=== PATIENT | male | born 1945 | race Caucasian/White ===

== ENCOUNTER 2022-01-15 11:52 | Inpatient (IN) | payer MEDICARE, OTHER ==
[~2022-01-15] VITALS: Ht 175.3 cm; Wt 83.0 kg
[2022-01-15 11:55] VITALS: BP 145/70
--- NOTE | 2022-01-15 12:12 | NUR ---
PT C/O DIZZINESS X2 MONTHS, SEEN AT MULTIPLE EMERGENCY ROOMS FOR SAME COMPLAINT. WAS DUE FOR DIALYSIS TODAY MISSED D/T DIZZINESS.
--- NOTE | 2022-01-15 12:43 | NUR ---
DR MONTALVO AT BEDSIDE EVALUATING PT
[2022-01-15 13:57] LABS: BASOPHILS # (AUTO) 0.2 K/uL (0.00-0.22); BASOPHILS % (AUTO) 1.4 % (0.0-2.0); EOSINOPHILS # (AUTO) 0.1 K/uL (0-0.4); EOSINOPHILS % (AUTO) 0.8 % (0.0-4.0); HEMATOCRIT 34.6 % (36-52); HEMOGLOBIN 11.3 g/dL (12.0-18.0); LYMPHOCYTES # (AUTO) 1.2 K/uL (2.0-11.5); LYMPHOCYTES % (AUTO) 9.9 % (20.5-51.1); MEAN CORPUSCULAR HEMOGLOBIN 29 pg (27-31); MEAN CORPUSCULAR HGB CONC 33 g/dL (33-37); MEAN CORPUSCULAR VOLUME 89.7 fL (80-94); MONOCYTES # (AUTO) 1.4 K/uL (0.8-1.0); MONOCYTES % (AUTO) 11.3 % (1.7-9.3); NEUTROPHILS # (AUTO) 9.4 K/uL (1.8-7.7); NEUTROPHILS % (AUTO) 76.6 % (42.2-75.2); PLATELET COUNT (AUTO) 396 K/uL (140-450); RED BLOOD CELL COUNT(AUTO) 3.86 MIL/uL (4.20-6.10); RED CELL DISTRIBUTION WIDTH 22.6 % (11.6-13.7); WHITE BLOOD COUNT (AUTO) 12.3 K/uL (4.8-10.8)
[2022-01-15 14:46] LABS: SODIUM SERUM 136 mmol/L (136-145)
[2022-01-15 15:14] LABS: ANION GAP 28.9 (8-16)
[2022-01-15 15:18] LABS: ASPARTATE AMINOTRANSFERASE 19 U/L (15-37); CARBON DIOXIDE 17.3 mmol/L (21-32); CHLORIDE 96 mmol/L (98-107); CREATININE 12.8 mg/dL (0.6-1.3); GLUCOSE 88 mg/dL (74-106); POTASSIUM 6.2 mmol/L (3.5-5.1); TOTAL BILIRUBIN 1.2 mg/dL (0.0-1.0); UREA NITROGEN, BLOOD 74 mg/dL (7-18)
[2022-01-15 15:19] LABS: ALBUMIN 3.3 g/dL (3.4-5.0)
[2022-01-15] MEDS ORDERED: CALCIUM GLUC 1 GM/50 mL NS BAG 50 ML IV ONE ×2 (15:45→18:21)
[2022-01-15] MEDS ORDERED: ALBUTEROL 0.083% 2.5 MG/3 ML NEBU INH ONE (15:45)
[2022-01-15] MEDS ORDERED: SODIUM ZIRCONIUM CYCLOSILICATE 10 GM POWD.PACK PO ONE (15:45)
[2022-01-15] MEDS ORDERED: TERA1CAP7 PO (18:11)
[2022-01-15] MEDS ORDERED: NITR12SP3 SL (18:11)
[2022-01-15] MEDS ORDERED: ATOR10TA PO (18:11)
[2022-01-15] MEDS ORDERED: [UNRECOGNIZED DRUG - CODE] NS (18:11)
[2022-01-15] MEDS ORDERED: APIX5TAB PO (18:11)
[2022-01-15] MEDS ORDERED: HYDR-3233 PO (18:11)
[2022-01-15] MEDS ORDERED: VITA-16 PO (18:11)
[2022-01-15] MEDS ORDERED: CALC667T8 PO (18:11)
[2022-01-15] MEDS ORDERED: ATOR10TA51 PO (18:11)
[2022-01-15] MEDS ORDERED: ASPI-1822 PO (18:11)
[2022-01-15] MEDS ORDERED: FAMO-90 PO (18:11)
[2022-01-15] MEDS ORDERED: SODIUM ZIRCONIUM CYCLOSILICATE 10 GM POWD.PACK ONE (18:23)
[2022-01-15] MEDS ORDERED: DOCUSATE SODIUM 100 MG GELCAP PO PRN (18:50)
[2022-01-15] MEDS ORDERED: MORPHINE SULFATE 2 MG/ML SYR IVP PRN (18:50)
[2022-01-15] MEDS ORDERED: POTASSIUM CHLORIDE 10 MEQ TABER PO PRN (18:50)
[2022-01-15] MEDS ORDERED: SODIUM PHOS / POTASSIUM PHOS 1 PKT PDR PO PRN (18:50)
[2022-01-15] MEDS ORDERED: ONDANSETRON 4 MG/2 ML VIAL IM/IVP PRN (18:50)
[2022-01-15] MEDS ORDERED: MAGNESIUM OXIDE 400 MG TAB PO PRN (18:50)
[2022-01-15] MEDS ORDERED: ACETAMINOPHEN 325 MG TAB PO PRN (18:50)
[2022-01-15] MEDS ORDERED: HYDROcodone/APAP 5/325 MG 1 TAB TAB PO PRN (18:50)
[2022-01-15 19:12] LABS: MAGNESIUM 2.2 mg/dL (1.8-2.4)
[2022-01-15 19:49] LABS: PHOSPHORUS 13.1 mg/dL (2.5-4.9)
--- NOTE | 2022-01-15 20:00 | NUR ---
Provided pt sandwich and juice.
--- NOTE | 2022-01-15 21:14 | NUR ---
Pt provide bedside comode, pt passed a bowlmovement
--- NOTE | 2022-01-15 22:40 | NUR ---
Patient will be admitted to care of Dr. Camarillo. Admited to ICU. Will go to room 3. Belongings list completed. Report to Mariana.
--- NOTE | 2022-01-15 22:50 | NUR ---
RECEIVED ENDORSEMENT FROM ER NURSE (LOULOU Roth RN). PATIENT RECEIVED AWAKE, ALERT, AND ON A GURNEY; ABLE TO MAKE ALL NEEDS KNOWN. PATIENT ABLE TO SELF TRANSFER FROM GURNEY TO BED. PATIENT REPORTS HISTORY OF FALLS SECONDARY TO DIZZINESS. MOST RECENT FALL WAS ON TUESDAY WHEN PATIENT REPORTS THAT HE GOT DIZZY AND FELL WHILE IN THE SHOWER. PATIENT WITH ESRD, AND HAS DIALYSIS ON MWF FREQUENT VISITS TO LOCAL HOSPITALS FOR SAME COMPLAINT OF DIZZINESS.
[2022-01-16] VITALS (13 sets, daily range): BP systolic 112–155; BP diastolic 35–103
--- NOTE | 2022-01-16 04:52 | NUR ---
PATIENT DECLINED AM CARE THIS MORNING
[2022-01-16 06:25] LABS: HEMATOCRIT 35.7 % (36-52); HEMOGLOBIN 11.5 g/dL (12.0-18.0); MEAN CORPUSCULAR HEMOGLOBIN 29 pg (27-31); MEAN CORPUSCULAR HGB CONC 32 g/dL (33-37); MEAN CORPUSCULAR VOLUME 90.7 fL (80-94); PLATELET COUNT (AUTO) 374 K/uL (140-450); RED BLOOD CELL COUNT(AUTO) 3.94 MIL/uL (4.20-6.10); RED CELL DISTRIBUTION WIDTH 23.1 % (11.6-13.7); WHITE BLOOD COUNT (AUTO) 11.8 K/uL (4.8-10.8)
[2022-01-16 06:59] LABS: ANION GAP 27.1 (8-16); CARBON DIOXIDE 19.3 mmol/L (21-32); CHLORIDE 95 mmol/L (98-107); GLUCOSE 96 mg/dL (74-106); POTASSIUM 5.4 mmol/L (3.5-5.1); SODIUM SERUM 136 mmol/L (136-145)
[2022-01-16 07:01] LABS: CREATININE 13.8 mg/dL (0.6-1.3); UREA NITROGEN, BLOOD 79 mg/dL (7-18)
[2022-01-16 08:00] LABS: EOSINOPHILS % (MANUAL) 1 % (0-4); LYMPHOCYTES % (MANUAL) 10 % (20-46); MONOCYTES % (MANUAL) 12 % (5-12)
[2022-01-16] MEDS: PANTOPRAZOLE 40 MG INJ VIAL IVP SCH ×2 (08:01→09:00)
--- NOTE | 2022-01-16 16:00 | NUR ---
HEMODIALYZED TODAY (TUESDAY) PATIENT WAS DIALYZED FROM 1300 HRS. TO 1600 HRS. NET UF 2000 MLS.
--- NOTE | 2022-01-16 17:29 | NUR ---
PATIENT HAS NO CANNULA, INFORMED FREDI GRANADSO TO SHIFT IV PANTOPRAZOLE TO ORAL. PATIENT REFUSED AGAIN FOR ANOTHER I.V.CANNULA INSERTION. PATIENT WANTS TO GO HOME, EXPLAINED THAT HE JUST BEEN DIALYZED AND PT. SAID THAT HE MISSED 3 DIALYSIS DAYS (TUESDAY, TUESDAY, TUESDAY), HE NEEDS TO BE OBSERVED ABOUT HIS DIZZINESS. Addendum: 01/16/22 at 1901 by Agency Nurse 20, RN RN MESSAGED DR. GRANDA ABOUT ATRIAL FIBRILLATION. NO CHEST PAIN.
--- NOTE | 2022-01-16 17:54 | NUR ---
RECEIVED REPORT FROM BLENDER CONVEYOR OPERATOR SHABBIR CONDON REGARDING PT, PER RN, PT HAS NO IV LINE DUE TO PT'S REFUSAL, INFORMED., AWAITING FOR PT TO BE TRANSFERRED TO [facility] DEPT.
--- NOTE | 2022-01-16 18:10 | NUR ---
TELEMETRY PATIENT TRANSFERRED TO TELEMETRY FROM ICU-3 TRANSFERRED PATIENT BY BED ON MONITOR. ON ROOM AIR. REPORT GIVEN EARLIER TO RN BINU Maloney INFORMED THAT RN, PT. REFUSED IV CANNULA, AND WANTS TO GO HOME, DOES NOT WANT TO BE IN THE HOSPITAL. DENIES HEADACHE NOW. BELONGINGS WITH PATIENT, MEDICAL RECORDS/CHART, HANDED OVER TO RN. NO ANTIBIOTICS/MEDS.
--- NOTE | 2022-01-16 18:30 | NUR ---
RECEIVED PT FORM CONCERT PROMOTER, SHABBIR, PT IS ALERT AND ORIENTED, ON ROOM AIR, HAS A RIGHT AV SHUNT, FUNCTIONING AND A LEFT AV SHUNT NON-FUNCTIONING, NO IV LINE DUE TO PT REFUSING IV LINE INSERTION, NO SIGN OF DISTRESS NOTED AND WILL CONTINUE TO MONITOR PT.
--- NOTE | 2022-01-16 18:49 | NUR ---
VITAL SIGNS TAKEN NOW AND IS STABLE.
--- NOTE | 2022-01-16 19:01 | NUR ---
ENDORSED PT TO NIGHT RN FOR CONTINUITY OF CARE.
--- NOTE | 2022-01-16 19:05 | NUR ---
RECEIVED PATIENT IN BED, AWAKE,ALERT AND ORIENTED. DENIES PAIN. DENIES SHORTNESS OF BREATH. SKIN WARM AND DRY TO TOUCH. RIGHT ARM AV SHUNT WITH BRUIT AND THRILL. ON BEDREST, BED IN THE LOWEST AND LOCKED POSITION FOR SAFETY, CALL LIGHT IN REACH, INSTRUCTED TO CALL IF ASSISTANCE IS NEEDED.
--- NOTE | 2022-01-16 21:59 | NUR ---
PATIENT ASLEEP. BREATHING EVEN AND UNLABORED. CALL LIGHT IN REACH.
[2022-01-17] VITALS: BP 106/57
--- NOTE | 2022-01-17 00:05 | NUR ---
VITAL SIGNS TAKEN AND DOCUMENTED. DENIES PAIN. NO SHORTNESS OF BREATH NOTED. CALL LIGHT WITHIN REACH.
--- NOTE | 2022-01-17 02:25 | NUR ---
ROUNDING DONE. PATIENT ASLEEP. NO S/SX OF PAIN NOR DISCOMFORT.
[2022-01-17 04:00] VITALS: BP 152/89
--- NOTE | 2022-01-17 04:05 | NUR ---
VITAL SIGNS TAKEN AND RECORDED. PATIENT STILL REFUSING IV INSERTION, EXPLAINED IMPORTANCE OF IV ACCESS BUT PATIENT STILL REFUSED STATING: "I WILL GO HOME LATER."
--- NOTE | 2022-01-17 06:32 | NUR ---
PATIENT IS AWAKE, ALERT AND ORIENTED. DENIES PAIN AT THIS TIME. SAFETY PRECAUTIONS MAINTAINED DURING THE SHIFT, CALL LIGHT REMAINED WITHIN REACH.
--- NOTE | 2022-01-17 07:44 | NUR ---
RECEIVED REPORT FROM THE NIGHT NURSE , PT IS AWAKE NO SOB, LOOKS COMFORTABLE DISCUSSED POC.[id number]
[2022-01-17 08:00] VITALS: BP 158/83
--- NOTE | 2022-01-17 08:39 | NUR ---
PATIENT HAS BEEN SCREENED AND CATEGORIZED MODERATE NUTRITION RISK. PATIENT WILL BE SEEN WITHIN 3-5 DAYS OF ADMISSION. 01/16/22-01/21/[address]
[2022-01-17] MEDS ORDERED: PANTOPRAZOLE 40 MG TABEC PO SCH (09:00)
[2022-01-17 12:00] VITALS: BP 109/66
[2022-01-17 13:13] VITALS: BP 109/69
--- NOTE | 2022-01-17 13:55 | NUR ---
DISCHARGED HOME, DISCHARGE INSTRUCTION GIVEN, NO IV LINE BUT ID BAND REMOVED LEFT VIA W\C WITH OUT DISCOMFORT.[id number]
[2022-01-19 06:07] LABS: HEPATITIS A ANTIBODY IGM Negative (Negative); HEPATITIS B CORE AB TOTAL Negative (Negative); HEPATITIS B SURFACE ANTIBODY Reactive (.); HEPATITIS B SURFACE ANTIGEN Negative (Negative)
== END 2022-01-17 14:01 | disposition home or self-care (01) | DRG 640 ==
LOC: MED 11:52 → MIC 17:10 → MTU 17:10 → MIC 18:23 → MTU 01-16 18:57
PROVIDERS: ADMIT Hospitalist; ATTEND Hospitalist
PROC: 5A1D70Z Performance of Urinary Filtration, Intermittent, Less than 6 Hours Per Day (ICD-10-PCS; principal; 2022-01-16)
DX: E87.5 Hyperkalemia (principal); N18.6 End stage renal disease; I12.0 Hypertensive chronic kidney disease with stage 5 chronic kidney disease or end stage renal disease; E44.1 Mild protein-calorie malnutrition; R65.10 Systemic inflammatory response syndrome (SIRS) of non-infectious origin without acute organ dysfunction; E87.70 Fluid overload, unspecified; K21.9 Gastro-esophageal reflux disease without esophagitis; E11.9 Type 2 diabetes mellitus without complications; I10 Essential (primary) hypertension; E78.5 Hyperlipidemia, unspecified; J45.909 Unspecified asthma, uncomplicated; N40.0 Benign prostatic hyperplasia without lower urinary tract symptoms; Z20.822 Contact with and (suspected) exposure to COVID-19; I48.91 Unspecified atrial fibrillation; E83.39 Other disorders of phosphorus metabolism; D63.8 Anemia in other chronic diseases classified elsewhere; Z68.27 Body mass index [BMI] 27.0-27.9, adult; Z88.0 Allergy status to penicillin; Z79.01 Long term (current) use of anticoagulants; Z79.899 Other long term (current) drug therapy; E11.22 Type 2 diabetes mellitus with diabetic chronic kidney disease
CPT/HCPCS: 36415; 71045; 80048; 80053; 83735; 84100; 84484; 85025; 86704; 86706; 86708; 86709; 86803; 87081; 87340; 93005; 94640; 96374; 99285; C9113; J0610; J2270; J7613